=== PATIENT | male | born 1990 | race Caucasian/White ===

== ENCOUNTER 2022-12-05 17:55 | Emergency (ER) | payer OTHER ==
[~2022-12-05] VITALS: Ht 167.6 cm; Wt 129.3 kg
[2022-12-05 18:05] VITALS: BP_SYST 140; PULSE 90; RESP 18; TEMP 98; O2SAT 98
[2022-12-05] MEDS ORDERED: NITROGLYCERIN 0.4 MG TAB.SUBL SL ONE (18:30)
[2022-12-05] MEDS ORDERED: ASPIRIN 81 MG TAB.CHEW PO ONE (18:30)
[2022-12-05 18:49] LABS: BASOPHILS # (AUTO) 0.1 K/uL (0.0-0.2); BASOPHILS % (AUTO) 0.8 % (0.0-2.0); EOSINOPHILS # (AUTO) 0.3 K/uL (0.0-0.4); EOSINOPHILS % (AUTO) 2.1 % (0.0-4.0); HEMATOCRIT 35.4 % (36-54); HEMOGLOBIN 11.2 g/dL (14.0-18.0); LYMPHOCYTES # (AUTO) 3.5 K/uL (1.0-5.5); LYMPHOCYTES % (AUTO) 26.6 % (20.5-51.5); MEAN CORPUSCULAR HEMOGLOBIN 20 pg (27-31); MEAN CORPUSCULAR HGB CONC 32 % (32-36); MEAN CORPUSCULAR VOLUME 64 fL (79.0-98.0); MONOCYTES # (AUTO) 0.9 K/uL (0.0-1.0); MONOCYTES % (AUTO) 6.9 % (1.7-9.3); NEUTROPHILS # (AUTO) 8.5 K/uL (1.8-7.7); NEUTROPHILS % (AUTO) 63.6 % (40.0-70.0); PLATELET COUNT (AUTO) 261 K/uL (130-430); RED BLOOD CELL COUNT(AUTO) 5.58 MIL/uL (4.2-6.2); RED CELL DISTRIBUTION WIDTH 15.6 % (9.0-15.0); WHITE BLOOD COUNT (AUTO) 13.3 K/uL (4.8-10.8)
[2022-12-05 18:55] LABS: ANION GAP 9 (5-15); CALCIUM 8.8 mg/dL (8.4-11.0); CHLORIDE 101 mmol/L (98-107); CREATININE 0.94 mg/dL (0.55-1.30); GFR AFRICAN AMERICAN 119 mL/min (>90); GLUCOSE 92 mg/dL (70-99); UREA NITROGEN, BLOOD 10 mg/dL (8-21)
[2022-12-05 19:02] LABS: ALANINE AMINOTRANSFERASE 44 U/L (12-78); ALBUMIN 4.1 g/dL (3.4-4.8); ASPARTATE AMINOTRANSFERASE 25 U/L (10-37); CHOLESTEROL 154 mg/dL (<200); HDL CHOLESTEROL 63 mg/dL (>45); TOTAL BILIRUBIN 1.2 mg/dL (0.0-1.0); TRIGLYCERIDES 107 mg/dL (30-150)
[2022-12-05] MEDS ORDERED: KETOROLAC TROMETHAMINE 60 MG/2 ML VIAL IM ONE (20:15)
[2022-12-05] MEDS ORDERED: IBUP-1971 PO (21:31)
[2022-12-05 22:02] VITALS: BP_SYST 117; PULSE 72; RESP 16; TEMP 98.2; O2SAT 98
== END 2022-12-05 22:02 | disposition home or self-care (01) ==
LOC: SED 17:55
DX: M94.0 Chondrocostal junction syndrome [Tietze] (principal); R07.89 Other chest pain; Z79.899 Other long term (current) drug therapy
CPT/HCPCS: 99285; 71045; 80061; 80053; 83880; 85025; 84484; 36415; 93005; 96372; J1885